=== PATIENT | female | born 1975 | race Caucasian/White ===

== ENCOUNTER 2017-07-29 08:00 | Outpatient (CLI) | payer OTHER | END 2017-07-29 08:01 | disposition home or self-care (01) | LOC: LAB.R 08:00 | PROVIDERS: ATTEND Family Medicine | DX: N39.0 Urinary tract infection, site not specified (principal) | CPT/HCPCS: 87086 ==

== ENCOUNTER 2018-08-12 09:05 | Outpatient (CLI) | payer OTHER ==
--- NOTE | 2018-08-13 12:14 | Mammography Report ---
Reason: SCREEN w NKIUNJ Procedure Date: 08/12/2018 Accession Number: [id number] / [id number] Procedure: NATE - Screening Mammo w/Nikunj CPT Code: FULL RESULT: EXAM: Screening Mammo w/Nikunj DATE: 08/12/2018 10:13 AM CLINICAL HISTORY: Routine screening TECHNIQUE: Bilateral CC and MLO views were obtained. COMPARISON: 01/22/2016 and 01/09/2016 FINDINGS: There are scattered fibroglandular densities. The previously demonstrated cysts in the anterior right breast have decreased in size and conspicuity. A small subareolar nodule in the left breast is unchanged compared to 2016 but has not been previously evaluated.. Suggest ultrasound. Otherwise no suspicious masses, clustered microcalcifications, or regions of architectural distortion are identified. IMPRESSION: Needs additional evaluation left breast by ultrasound. Negative right breast. RECOMMENDATION: Additional evaluation left breast by ultrasound. BIRADS CATEGORY 0: Needs additional evaluation STANDARD QUALIFYING STATEMENTS: 1. This examination was not reviewed with the aid of Computer-Aided Detection (CAD). 2. A negative or benign imaging report should not delay biopsy if clinically suspicious findings are present. Consider surgical consultation if warrented. More than 5% of cancers are not identified by imaging. 3. Dense breasts may obscure an underlying neoplasm. 4. This examination was reviewed with the aid of 3D breast imaging (tomosynthesis).
== END 2018-08-12 09:06 | disposition home or self-care (01) ==
LOC: DI 09:05
DX: Z12.31 Encounter for screening mammogram for malignant neoplasm of breast (principal); R92.8 Other abnormal and inconclusive findings on diagnostic imaging of breast
CPT/HCPCS: 77063; 77067

== ENCOUNTER 2018-08-12 09:55 | Outpatient (CLI) | payer OTHER ==
[2018-08-12 10:19] LABS: BASOPHILS % (AUTO) 0.5 %; EOSINOPHILS # (AUTO) 0.1 10^3/uL (0.0-0.7); EOSINOPHILS % (AUTO) 1.4 %; HGB - HEMOGLOBIN 12.9 g/dL (12.0-16.0); LYMPHOCYTES # (AUTO) 1.8 10^3/uL (1.5-3.5); LYMPHOCYTES % (AUTO) 28.8 %; MEAN CORPUSCULAR HEMOGLOBIN 32.7 pg (27.0-31.0); MEAN CORPUSCULAR HGB CONC 35.1 g/dL (32.0-36.0); MEAN CORPUSCULAR VOLUME 93.1 fL (81.0-99.0); MEAN PLATELET VOLUME 8.7 fL (7.9-10.8); MONOCYTES # (AUTO) 0.5 10^3/uL (0.0-1.0); MONOCYTES % (AUTO) 7.6 %; NEUTROPHILS # (AUTO) 3.9 10^3/uL (1.5-6.6); NEUTROPHILS % (AUTO) 61.7 %; PLT - PLATELET COUNT 220 10^3/uL (130-450); RED BLOOD COUNT 3.96 10^6/uL (4.20-5.40); RED CELL DISTRIBUTION WIDTH 12.5 % (12.0-15.0); WHITE BLOOD COUNT 6.3 x10^3/uL (4.8-10.8)
[2018-08-12 10:35] LABS: ALBUMIN 4.2 g/dL (3.2-5.5); ALBUMIN/GLOBULIN RATIO 1.6 (1.0-2.2); ALKALINE PHOSPHATASE 97 IU/L (42-121); ALT ALANINE AMINOTRANSFERASE 31 IU/L (10-60); AST ASPARTATE AMINOTRANSFERASE 29 IU/L (10-42); BILIRUBIN,TOTAL 0.4 mg/dL (0.2-1.0); BUN - BLOOD UREA NITROGEN 11 mg/dL (6-20); CALCIUM 8.6 mg/dL (8.5-10.3); CARBON DIOXIDE - CO2 25 mmol/L (21-32); CHLORIDE 106 mmol/L (101-111); CHOL/HDL RATIO 3.9 (<4.4); CHOLESTEROL 165 mg/dL; CREATININE 0.6 mg/dL (0.4-1.0); GFR - MDRD 109 (>89); GLUCOSE 98 mg/dL (70-100); HDL CHOLESTEROL 42 mg/dL; LDL CHOLESTEROL,CALCULATED 101 mg/dL; LDL/HDL RATIO 2.4 (<4.4); SODIUM 139 mmol/L (135-145); TOTAL PROTEIN 6.9 g/dL (6.7-8.2); VLDL CHOLESTEROL 22 mg/dL
[2018-08-12 10:46] LABS: HB2 TOTAL 13.8 g/dL; HEMOGLOBIN A1C 0.46 g/dL; HEMOGLOBIN A1C % 5.2 % (4.6-6.2)
== END 2018-08-12 09:56 | disposition home or self-care (01) ==
LOC: LAB 09:55
PROVIDERS: ATTEND Family Medicine
DX: E78.5 Hyperlipidemia, unspecified (principal); F41.8 Other specified anxiety disorders; I10 Essential (primary) hypertension
CPT/HCPCS: 36415; 80053; 80061; 83036; 83721; 84443; 85025

== ENCOUNTER 2018-08-25 18:57 | Outpatient (CLI) | payer OTHER ==
--- NOTE | 2018-08-25 23:41 | Ultrasound Report ---
Reason: HEAVY MENSTRUATION,PELVIC PAIN Procedure Date: 08/25/2018 Accession Number: [id number] / [id number] Procedure: US - Pelvic w/Transvaginal CPT Code: FULL RESULT: EXAM: PELVIC ULTRASOUND EXAM DATE: 08/25/2018 07:28 PM. CLINICAL HISTORY: Heavy menstruation, pelvic pain. COMPARISON: None. TECHNIQUE: Realtime transabdominal pelvic scan performed to identify the uterus and adnexa and as an overview of other pelvic structures, followed by transvaginal scan to provide greater detail of the uterus and adnexa, with static image documentation. FINDINGS: Uterus: 9.4 x 6.1 x 7.1 cm, volume 214.1 cc. Retroverted and retroflexed position. Normal overall size and echotexture. Masses: Undefined, poorly marginated 2 x 1.9 x 2.7 cm isoechoic lesion in the posterior uterine body may represent a small fibroid. Endometrium: 15 mm. No endometrial mass or polyp.Endometrium is heterogeneous. Cervix: Multiple nabothian cysts are noted. No mass. Right Ovary: 3.3 x 1.5 x 1.2 cm, volume 3.1 cc. Normal echotexture and blood flow. Left Ovary: 3.7 x 2.7 x 3.9 cm, volume 20.7 cc. Normal echotexture and blood flow. 2.4 x 2.1 x 2.7 Cm complex left thick-walled ovarian cyst with debris and mild peripheral flow. No mural nodules or thickened septations. Free Fluid: None. Other: None. IMPRESSION: 1. Mildly complex thick-walled debris-containing 2.4 cm left ovarian cyst. Differential includes hemorrhagic cyst or corpus luteum. Otherwise, both ovaries and adnexa are normal. 2. No endometrial mass or polyp. 3. Possible posterior uterine intramural 2.7 cm fibroid. RADIA
== END 2018-08-25 18:58 | disposition home or self-care (01) ==
LOC: DI 18:57
PROVIDERS: ATTEND Family Medicine
DX: N83.292 Other ovarian cyst, left side (principal)
CPT/HCPCS: 76830; 76856

== ENCOUNTER 2018-09-01 12:03 | Outpatient (CLI) | payer OTHER ==
--- NOTE | 2018-09-02 11:50 | Ultrasound Report ---
Reason: ABN MAMMO - LT SPEC VIEW US Procedure Date: 09/01/2018 Accession Number: [id number] / [id number] Procedure: US - Breast Unilateral Limited CPT Code: FULL RESULT: EXAM: Breast Unilateral Limited DATE: 09/01/2018 1:02 PM CLINICAL HISTORY: Diagnostic breast ultrasound to clarify mammographic finding on screening mammography. ? COMPARISON: Screening mammogram 08/12/2018. TECHNIQUE: Targeted ultrasound was performed of the left breast in the area of mammographic concern at 7 o'clock. ?Color Doppler was employed as appropriate. ? FINDINGS: A cluster of anechoic thin-walled cystic masses individually measuring less than 3 mm with thin intervening septations and no discrete solid component collectively measuring less than 7 mm identified; clustered microcysts. Given retrospective 2 years stability on mammogram as well as well-defined borders and absence of a soft tissue solid component on ultrasound these findings are considered benign. IMPRESSION: Benign findings. BI-RADS category: 2 Recommendation: Annual screening mammography. RADIA
== END 2018-09-01 12:04 | disposition home or self-care (01) ==
LOC: DI 12:03
PROVIDERS: ATTEND Family Medicine
DX: N63.20 Unspecified lump in the left breast, unspecified quadrant (principal); R92.8 Other abnormal and inconclusive findings on diagnostic imaging of breast
CPT/HCPCS: 76642

== ENCOUNTER 2018-12-22 16:23 | Outpatient (CLI) | payer OTHER ==
[2018-12-22] MEDS ORDERED: GADOBUTROL 10 MMOL/10 ML VIAL ONE (16:32)
[2018-12-22] MEDS: GADOBUTROL 10 MMOL/10 ML VIAL IVP ONE (18:12)
--- NOTE | 2018-12-24 01:09 | MRI Report ---
Reason: PELVIC PAIN, HEAVY MENSTRUATION Procedure Date: 12/22/2018 Accession Number: [id number] / [id number] Procedure: MRI - Pelvis W/WO CPT Code: FULL RESULT: EXAM: MR PELVIS WITH AND WITHOUT CONTRAST (MR FEMALE PELVIS) EXAM DATE: 12/22/2018 06:14 PM. CLINICAL HISTORY: Pelvic pain, heavy menstruation. COMPARISON: PELVIC W/TRANSVAGINAL 08/25/2018 7:07 PM. TECHNIQUE: Multiplanar breath-hold T1, T2 and DWI sequences obtained through the pelvis on an MR scanner. Images obtained before and after administration of 10 mL Gadavist intravenous contrast. FINDINGS: Uterus: Retroflexed. No measurable fibroids seen. Mild junctional zone thickening, measuring up to 13 mm posteriorly. No endometrial mass is seen. Ovaries: Both appear normal. No adnexal masses seen. Bowel: The visualized portions of the small bowel, colon, and rectum appear normal. Bladder: The urinary bladder appears normal. Other: Trace free fluid. IMPRESSION: 1. Mild uterine adenomyosis. 2. Otherwise negative pelvic MRI. RADIA
== END 2018-12-22 16:24 | disposition home or self-care (01) ==
LOC: DI 16:23
PROVIDERS: ATTEND Obstetrics & Gynecology
DX: N80.0 Endometriosis of uterus (principal)
CPT/HCPCS: 72197; A9585

== ENCOUNTER 2020-03-16 17:18 | Outpatient (CLI) | payer OTHER ==
[2020-03-16 17:42] LABS: BASOPHILS % (AUTO) 0.3 %; EOSINOPHILS # (AUTO) 0.1 10^3/uL (0.0-0.7); EOSINOPHILS % (AUTO) 1.2 %; LYMPHOCYTES # (AUTO) 1.9 10^3/uL (1.5-3.5); LYMPHOCYTES % (AUTO) 32.2 %; MEAN CORPUSCULAR HEMOGLOBIN 31.8 pg (27.0-31.0); MEAN CORPUSCULAR HGB CONC 32.9 g/dL (32.0-36.0); MEAN CORPUSCULAR VOLUME 96.6 fL (81.0-99.0); MEAN PLATELET VOLUME 10.4 fL (7.9-10.8); MONOCYTES # (AUTO) 0.5 10^3/uL (0.0-1.0); MONOCYTES % (AUTO) 8.5 %; NEUTROPHILS # (AUTO) 3.4 10^3/uL (1.5-6.6); NEUTROPHILS % (AUTO) 57.5 %; PLT - PLATELET COUNT 223 10^3/uL (130-450); RED BLOOD COUNT 4.09 10^6/uL (4.20-5.40); WHITE BLOOD COUNT 5.9 x10^3/uL (4.8-10.8)
[2020-03-16 17:55] LABS: ALBUMIN 4.2 g/dL (3.2-5.5); ALBUMIN/GLOBULIN RATIO 1.4 (1.0-2.2); BILIRUBIN,TOTAL 0.7 mg/dL (0.2-1.0); CREATININE 0.8 mg/dL (0.4-1.0); TOTAL PROTEIN 7.1 g/dL (6.7-8.2)
== END 2020-03-16 17:19 | disposition home or self-care (01) ==
LOC: LAB 17:18
PROVIDERS: ATTEND Physician Assistant
DX: I10 Essential (primary) hypertension (principal); F32.9 Major depressive disorder, single episode, unspecified; F41.9 Anxiety disorder, unspecified
CPT/HCPCS: 36415; 80053; 82306; 84443; 85025

== ENCOUNTER 2020-03-29 08:00 | Outpatient (CLI) | payer OTHER ==
[2020-03-29 18:33] LABS: CALCIUM 8.8 mg/dL (8.5-10.3); CREATININE 0.8 mg/dL (0.4-1.0)
== END 2020-03-29 23:59 | disposition home or self-care (01) ==
LOC: LAB.WCP 08:00
PROVIDERS: ATTEND Nurse Practitioner Family
DX: I10 Essential (primary) hypertension (principal)
CPT/HCPCS: 36415; 80048

== ENCOUNTER 2020-04-10 14:32 | Outpatient (CLI) | payer OTHER ==
[2020-04-10 15:08] LABS: CALCIUM 8.4 mg/dL (8.5-10.3); CREATININE 0.6 mg/dL (0.4-1.0)
== END 2020-04-10 14:33 | disposition home or self-care (01) ==
LOC: LAB 14:32
PROVIDERS: ATTEND Nurse Practitioner Family
DX: E87.6 Hypokalemia (principal)
CPT/HCPCS: 36415; 80048

== ENCOUNTER 2020-04-11 14:26 | Outpatient (CLI) | payer OTHER | END 2020-04-11 23:59 | disposition home or self-care (01) | LOC: LAB.WCP 14:26 | PROVIDERS: ATTEND Physician Assistant | DX: E87.6 Hypokalemia (principal) | CPT/HCPCS: 36415; 82088; 83935; 84244; 84300 ==

== ENCOUNTER 2020-04-24 09:21 | Outpatient (CLI) | payer OTHER ==
--- NOTE | 2020-04-24 10:34 | Ultrasound Report ---
PROCEDURE: Abdomen Limited INDICATIONS: LUQ ABD MASS TECHNIQUE: Real-time focused scanning was performed of the abdomen, with image documentation. COMPARISON: None. FINDINGS: In the area of palpable abnormality involving the left upper quadrant, and tenderness, no discrete sonographic mass cyst or fluid collection is identified. IMPRESSION: Negative ultrasound examination in the area of palpable abnormality as above. Recommend clinical stephanie gement. If clinically warranted, CT evaluation could be considered. Reviewed by: William Hill MD on 04/24/2020 10:33 AM PDT Approved by: William Hill MD on 04/24/2020 10:33 AM PDT Station ID: [id number]
== END 2020-04-24 09:22 | disposition home or self-care (01) ==
LOC: DI 09:21
PROVIDERS: ATTEND Physician Assistant
DX: R19.02 Left upper quadrant abdominal swelling, mass and lump (principal)
CPT/HCPCS: 76705

== ENCOUNTER 2020-06-06 12:06 | Outpatient (CLI) | payer OTHER ==
[2020-06-06 18:55] LABS: CALCIUM 8.4 mg/dL (8.5-10.3); CREATININE 0.7 mg/dL (0.4-1.0)
== END 2020-06-06 12:07 | disposition home or self-care (01) ==
LOC: LAB.WCP 12:06
PROVIDERS: ATTEND Nurse Practitioner Family
DX: E55.9 Vitamin D deficiency, unspecified (principal); R19.02 Left upper quadrant abdominal swelling, mass and lump; E87.6 Hypokalemia
CPT/HCPCS: 36415; 80048; 82306; 82565

== ENCOUNTER 2020-06-09 10:40 | Outpatient (CLI) | payer OTHER ==
[2020-06-09] MEDS ORDERED: IOVERSOL 320 50 ML VIAL ONE (10:54)
[2020-06-09] MEDS ORDERED: IOVERSOL 320 100 ML VIAL IVP ONE ×2 (10:54→18:57)
--- NOTE | 2020-06-09 13:50 | CT Report ---
PROCEDURE: Abdomen/Pelvis W INDICATIONS: Left upper quadrant abdominal mass CONTRAST: IV CONTRAST: Optiray 320 ml: 100 PO CONTRAST: Optiray 320 ml50 TECHNIQUE: After the administration of oral and intravenous contrast, 5 mm thick sections acquired from the diap hragms to the symphysis. 5 mm thick coronal and sagittal reformats were acquired. For radiation dos e reduction, the following was used: automated exposure control, adjustment of mA and/or kV accordin g to patient size. COMPARISON: Abdominal ultrasound 04/24/2020. FINDINGS: Image quality: Excellent. ABDOMEN: Lung bases: Lung bases are clear. Heart size is normal. Solid organs: Mild hepatic steatosis. No focal hepatic mass or intrahepatic biliary ductal dilatation . Gallbladder unremarkable. Normal size of the spleen with no splenic mass. There is a splenule immed iately inferiorly adjacent to the anterior spleen measuring approximately 2.1 cm. Both adrenal glands and kidneys are normal in appearance. Pancreas is unremarkable. Peritoneum and bowel: Bowel loops demonstrate normal wall thickness and caliber. No free fluid or a ir. Nodes and vessels: No retroperitoneal or mesenteric adenopathy by size criteria. Aorta and inferior vena cava are normal in size. Miscellaneous: No mass in the subcutaneous soft tissues of the left upper quadrant or elsewhere. PELVIS: Genitourinary: Bladder wall thickness is normal. Uterus and adnexa are within normal limits. Miscellaneous: No inguinal hernias or adenopathy. Bones: No suspicious bony lesions. No vertebral body compression fractures. IMPRESSION: Unremarkable CT of the abdomen and pelvis. No left upper quadrant mass or other finding to correlating with the provided history. Reviewed by: Joel Azevedo MD on 06/09/2020 1:49 PM PDT Approved by: Joel Azevedo MD on 06/09/2020 1:49 PM PDT Station ID: [id number]
[2020-06-09] MEDS ORDERED: IOVERSOL 320 50 ML VIAL PO ONE (18:57)
== END 2020-06-09 10:41 | disposition home or self-care (01) ==
LOC: DI 10:40
PROVIDERS: ATTEND Physician Assistant
DX: R19.02 Left upper quadrant abdominal swelling, mass and lump (principal)
CPT/HCPCS: 74177; Q9967

== ENCOUNTER 2020-08-03 07:00 | Outpatient (CLI) | payer OTHER | END 2020-08-03 23:59 | disposition home or self-care (01) | LOC: LAB.R 07:00 | PROVIDERS: ATTEND Physician Assistant Medical | DX: J06.9 Acute upper respiratory infection, unspecified (principal); Z20.828 Contact with and (suspected) exposure to other viral communicable diseases | CPT/HCPCS: 87070 ==

== ENCOUNTER 2020-11-28 11:09 | Outpatient (CLI) | payer OTHER ==
[2020-11-28 18:16] LABS: BASOPHILS % (AUTO) 0.1 %; EOSINOPHILS # (AUTO) 0.1 10^3/uL (0.0-0.7); EOSINOPHILS % (AUTO) 1.1 %; HGB - HEMOGLOBIN 14.3 g/dL (12.0-16.0); LYMPHOCYTES # (AUTO) 1.6 10^3/uL (1.5-3.5); LYMPHOCYTES % (AUTO) 22.2 %; MEAN CORPUSCULAR HEMOGLOBIN 31.2 pg (27.0-31.0); MEAN CORPUSCULAR HGB CONC 31.5 g/dL (32.0-36.0); MEAN CORPUSCULAR VOLUME 99.1 fL (81.0-99.0); MONOCYTES # (AUTO) 0.6 10^3/uL (0.0-1.0); MONOCYTES % (AUTO) 8.1 %; NEUTROPHILS # (AUTO) 4.8 10^3/uL (1.5-6.6); NEUTROPHILS % (AUTO) 68.1 %; PLT - PLATELET COUNT 241 10^3/uL (130-450); RED BLOOD COUNT 4.58 10^6/uL (4.20-5.40); RED CELL DISTRIBUTION WIDTH 12.1 % (12.0-15.0); WHITE BLOOD COUNT 7.1 x10^3/uL (4.8-10.8)
[2020-11-28 18:38] LABS: ALBUMIN 4.4 g/dL (3.2-5.5); ALBUMIN/GLOBULIN RATIO 1.5 (1.0-2.2); ALKALINE PHOSPHATASE 73 IU/L (42-121); ALT ALANINE AMINOTRANSFERASE 22 IU/L (10-60); AST ASPARTATE AMINOTRANSFERASE 21 IU/L (10-42); BILIRUBIN,TOTAL 0.6 mg/dL (0.2-1.0); BUN - BLOOD UREA NITROGEN 14 mg/dL (6-20); CALCIUM 9.2 mg/dL (8.5-10.3); CARBON DIOXIDE - CO2 27 mmol/L (21-32); CHLORIDE 104 mmol/L (101-111); CHOL/HDL RATIO 4.8 (<4.4); CHOLESTEROL 196 mg/dL; CREATININE 0.8 mg/dL (0.4-1.0); GLUCOSE 103 mg/dL (70-100); HDL CHOLESTEROL 41 mg/dL; LDL CHOLESTEROL,CALCULATED 122 mg/dL; TOTAL PROTEIN 7.4 g/dL (6.7-8.2); VLDL CHOLESTEROL 33 mg/dL
== END 2020-11-28 11:10 | disposition home or self-care (01) ==
LOC: LAB.N 11:09
PROVIDERS: ATTEND Internal Medicine
DX: I10 Essential (primary) hypertension (principal); E78.5 Hyperlipidemia, unspecified
CPT/HCPCS: 36415; 80053; 80061; 83721; 84443; 85025

== ENCOUNTER 2021-01-16 13:09 | Outpatient (CLI) | payer OTHER ==
--- NOTE | 2021-01-17 13:40 | Mammography Report ---
BILATERAL DIGITAL SCREENING MAMMOGRAM 3D/2D: 01/16/2021 CLINICAL: Routine screening. Comparison is made to exams dated: 08/12/2018 mammogram, 01/22/2016 mammogram, and 01/09/2016 mammogra m - [facility]. There are scattered fibroglandular elements in both breasts. No significant masses, calcifications, or other findings are seen in either breast. There has been no significant interval change. IMPRESSION: NEGATIVE There is no mammographic evidence of malignancy. A 1 year screening mammogram is recommended. This exam was interpreted at Station ID: [id number]. NOTE: For mammograms, a report in lay terms will be sent to the patient. Approximately 15% of breast malignancies will not be visualized mammographically. In the management of a palpable breast mass, a negative mammogram must not discourage biopsy of a clinically suspicious lesion. Electronically Signed By: Juan Acosta M.D. ddp/penrad:01/16/2021 14:53:52 ACR BI-RADS Category 1: Negative 3341F PARENCHYMAL PATTERN: (A) - The breast(s) demonstrate(s) scattered fibroglandular densities. BI-RADS CATEGORY: (1) - 1 RECOMMENDATION: (ANNUAL) - Recommend routine annual screening mammography. [id number] 1 year screening LATERALITY: (B)
== END 2021-01-16 13:10 | disposition home or self-care (01) ==
LOC: DI 13:09
PROVIDERS: ATTEND Internal Medicine
DX: Z12.31 Encounter for screening mammogram for malignant neoplasm of breast (principal)

== ENCOUNTER 2021-03-30 09:36 | Outpatient (CLI) | payer OTHER | END 2021-03-30 23:59 | disposition home or self-care (01) | LOC: LAB.N 09:36 | PROVIDERS: ATTEND Family Medicine | DX: Z23 Encounter for immunization (principal) | CPT/HCPCS: 36415; 86762; 86787 ==

== ENCOUNTER 2021-12-12 10:20 | Outpatient (CLI) | payer OTHER ==
[2021-12-12 10:41] LABS: BASOPHILS % (AUTO) 0.2 %; EOSINOPHILS # (AUTO) 0.1 10^3/uL (0.0-0.7); EOSINOPHILS % (AUTO) 1.2 %; HGB - HEMOGLOBIN 13.8 g/dL (12.0-16.0); LYMPHOCYTES # (AUTO) 1.6 10^3/uL (1.5-3.5); LYMPHOCYTES % (AUTO) 30.4 %; MEAN CORPUSCULAR HEMOGLOBIN 32.3 pg (27.0-31.0); MEAN CORPUSCULAR HGB CONC 34.5 g/dL (32.0-36.0); MEAN CORPUSCULAR VOLUME 93.7 fL (81.0-99.0); MEAN PLATELET VOLUME 10.9 fL (7.9-10.8); MONOCYTES # (AUTO) 0.5 10^3/uL (0.0-1.0); MONOCYTES % (AUTO) 10.2 %; NEUTROPHILS % (AUTO) 57.8 %; PLT - PLATELET COUNT 186 10^3/uL (130-450); RED BLOOD COUNT 4.27 10^6/uL (4.20-5.40); RED CELL DISTRIBUTION WIDTH 11.9 % (12.0-15.0); WHITE BLOOD COUNT 5.2 x10^3/uL (4.8-10.8)
[2021-12-12 11:05] LABS: ALBUMIN 4.5 g/dL (3.2-5.5); ALKALINE PHOSPHATASE 55 IU/L (42-121); ALT ALANINE AMINOTRANSFERASE 44 IU/L (10-60); AST ASPARTATE AMINOTRANSFERASE 31 IU/L (10-42); BILIRUBIN,TOTAL 0.8 mg/dL (0.2-1.0); BUN - BLOOD UREA NITROGEN 18 mg/dL (6-20); CALCIUM 8.7 mg/dL (8.5-10.3); CARBON DIOXIDE - CO2 24 mmol/L (21-32); CHLORIDE 100 mmol/L (101-111); CHOL/HDL RATIO 4.7 (<4.4); CHOLESTEROL 140 mg/dL; CREATININE 0.8 mg/dL (0.4-1.0); GFR - MDRD 77 (>89); GLUCOSE 108 mg/dL (70-100); HDL CHOLESTEROL 30 mg/dL; LDL CHOLESTEROL,CALCULATED 94 mg/dL; LDL/HDL RATIO 3.1 (<4.4); POTASSIUM 3.1 mmol/L (3.5-5.0); SODIUM 136 mmol/L (135-145); TOTAL PROTEIN 6.8 g/dL (6.7-8.2); TRIGLYCERIDES 80 mg/dL; VLDL CHOLESTEROL 16 mg/dL
[2021-12-12 12:54] LABS: THYROID STIMULATING HORMONE 1.84 uIU/mL (0.34-5.60)
== END 2021-12-12 10:21 | disposition home or self-care (01) ==
LOC: LAB 10:20
PROVIDERS: ATTEND Internal Medicine
DX: I10 Essential (primary) hypertension (principal); E78.5 Hyperlipidemia, unspecified; E55.9 Vitamin D deficiency, unspecified; F41.9 Anxiety disorder, unspecified; F32.A Depression, unspecified
CPT/HCPCS: 36415; 80053; 80061; 82306; 83721; 84443; 85025

== ENCOUNTER 2022-01-03 08:54 | Outpatient (CLI) | payer OTHER ==
--- NOTE | 2022-01-03 16:22 | MRI Report ---
PROCEDURE: Thoracic Spine W/O INDICATIONS: THORACIC DISC DISORDER TECHNIQUE: Noncontrast sagittal T1 spine echo and T2 fast spin echo, sagittal STIR, axial T1 and T2 fast spin ec ho through the thoracic spine. COMPARISON: None. FINDINGS: Image quality: Excellent. Alignment and Curvature: Normal thoracic vertebral body height and alignment. Bone Marrow: Marrow no suspicious focal marrow signal abnormality or bone marrow edema. Spinal Cord: Normal morphology and signal intensity of the thoracic cord. Regional Soft Tissues: No paravertebral masses. Miscellaneous: No spinal canal or neural foraminal stenosis at any level in the thoracic spine. No fi ndings of cord compression or focal nerve root impingement. No significant degenerative changes of th e endplates or facet. IMPRESSION: Unremarkable thoracic spine MRI without spinal canal stenosis, neural foraminal stenosis , or focal nerve root impingement, or cord signal abnormality. Reviewed by: Joel Azevedo MD on 01/03/2022 4:20 PM PST Approved by: Joel Azevedo MD on 01/03/2022 4:20 PM PST Station ID: [id number]
== END 2022-01-03 08:55 | disposition home or self-care (01) ==
LOC: DI 08:54
PROVIDERS: ATTEND Internal Medicine
DX: M51.14 Intervertebral disc disorders with radiculopathy, thoracic region (principal)

== ENCOUNTER 2022-03-14 12:38 | Outpatient (CLI) | payer OTHER ==
[2022-03-14 13:07] LABS: CALCIUM 8.9 mg/dL (8.5-10.3); CREATININE 0.9 mg/dL (0.4-1.0); POTASSIUM 3.3 mmol/L (3.5-5.0)
== END 2022-03-14 12:39 | disposition home or self-care (01) ==
LOC: LAB 12:38
PROVIDERS: ATTEND Internal Medicine
DX: I10 Essential (primary) hypertension (principal)
CPT/HCPCS: 36415; 80048

== ENCOUNTER 2022-06-27 12:14 | Outpatient (CLI) | payer OTHER ==
[2022-06-27 12:35] LABS: BASOPHILS % (AUTO) 0.3 %; EOSINOPHILS # (AUTO) 0.1 10^3/uL (0.0-0.7); EOSINOPHILS % (AUTO) 1.3 %; HGB - HEMOGLOBIN 14.2 g/dL (12.0-16.0); LYMPHOCYTES # (AUTO) 1.9 10^3/uL (1.5-3.5); LYMPHOCYTES % (AUTO) 24.5 %; MEAN CORPUSCULAR HEMOGLOBIN 31.8 pg (27.0-31.0); MEAN CORPUSCULAR HGB CONC 33.8 g/dL (32.0-36.0); MEAN PLATELET VOLUME 10.7 fL (7.9-10.8); MONOCYTES # (AUTO) 0.6 10^3/uL (0.0-1.0); MONOCYTES % (AUTO) 7.8 %; NEUTROPHILS # (AUTO) 5.1 10^3/uL (1.5-6.6); NEUTROPHILS % (AUTO) 65.7 %; PLT - PLATELET COUNT 219 10^3/uL (130-450); RED BLOOD COUNT 4.47 10^6/uL (4.20-5.40); RED CELL DISTRIBUTION WIDTH 12.1 % (12.0-15.0); WHITE BLOOD COUNT 7.7 x10^3/uL (4.8-10.8)
[2022-06-27 13:05] LABS: THYROID STIMULATING HORMONE 1.66 uIU/mL (0.34-5.60)
[2022-06-27 13:25] LABS: ALBUMIN 4.4 g/dL (3.2-5.5); ALBUMIN/GLOBULIN RATIO 1.5 (1.0-2.2); ALKALINE PHOSPHATASE 59 IU/L (42-121); ALT ALANINE AMINOTRANSFERASE 23 IU/L (10-60); AST ASPARTATE AMINOTRANSFERASE 20 IU/L (10-42); BILIRUBIN,TOTAL 0.8 mg/dL (0.2-1.0); BUN - BLOOD UREA NITROGEN 14 mg/dL (6-20); CALCIUM 9.1 mg/dL (8.5-10.3); CARBON DIOXIDE - CO2 25 mmol/L (21-32); CHLORIDE 104 mmol/L (101-111); CHOL/HDL RATIO 4.6 (<4.4); CHOLESTEROL 166 mg/dL; CREATININE 0.8 mg/dL (0.4-1.0); GFR - MDRD 77 (>89); GLUCOSE 113 mg/dL (70-100); HDL CHOLESTEROL 36 mg/dL; LDL CHOLESTEROL,CALCULATED 103 mg/dL; LDL/HDL RATIO 2.9 (<4.4); POTASSIUM 3.8 mmol/L (3.5-5.0); SODIUM 138 mmol/L (135-145); TOTAL PROTEIN 7.4 g/dL (6.7-8.2); TRIGLYCERIDES 136 mg/dL; VLDL CHOLESTEROL 27 mg/dL
[2022-06-27 21:00] LABS: ESTIMATED AVERAGE GLUCOSE 97 mg/dL (70-100)
== END 2022-06-27 12:15 | disposition home or self-care (01) ==
LOC: LAB 12:14
PROVIDERS: ATTEND Internal Medicine
DX: I10 Essential (primary) hypertension (principal); E78.5 Hyperlipidemia, unspecified; E55.9 Vitamin D deficiency, unspecified; R73.01 Impaired fasting glucose; F41.9 Anxiety disorder, unspecified; F32.A Depression, unspecified
CPT/HCPCS: 36415; 80053; 80061; 82306; 83036; 83721; 84443; 85025

== ENCOUNTER 2023-02-26 11:43 | Outpatient (CLI) | payer OTHER ==
[2023-02-26 12:23] LABS: BASOPHILS % (AUTO) 0.2 %; EOSINOPHILS # (AUTO) 0.1 10^3/uL (0.0-0.7); EOSINOPHILS % (AUTO) 1.4 %; HGB - HEMOGLOBIN 13.9 g/dL (12.0-16.0); LYMPHOCYTES # (AUTO) 1.6 10^3/uL (1.5-3.5); LYMPHOCYTES % (AUTO) 28.1 %; MEAN CORPUSCULAR HEMOGLOBIN 31.1 pg (27.0-31.0); MEAN CORPUSCULAR HGB CONC 33.1 g/dL (32.0-36.0); MEAN PLATELET VOLUME 10.5 fL (7.9-10.8); MONOCYTES # (AUTO) 0.5 10^3/uL (0.0-1.0); MONOCYTES % (AUTO) 8.4 %; NEUTROPHILS # (AUTO) 3.4 10^3/uL (1.5-6.6); NEUTROPHILS % (AUTO) 61.4 %; PLT - PLATELET COUNT 240 10^3/uL (130-450); RED BLOOD COUNT 4.47 10^6/uL (4.20-5.40); RED CELL DISTRIBUTION WIDTH 11.9 % (12.0-15.0); WHITE BLOOD COUNT 5.6 x10^3/uL (4.8-10.8)
[2023-02-26 12:29] LABS: ALBUMIN 4.3 g/dL (3.2-5.5); ALBUMIN/GLOBULIN RATIO 1.6 (1.0-2.2); ALKALINE PHOSPHATASE 66 IU/L (42-121); ALT ALANINE AMINOTRANSFERASE 25 IU/L (10-60); AST ASPARTATE AMINOTRANSFERASE 24 IU/L (10-42); BILIRUBIN,TOTAL 0.9 mg/dL (0.2-1.0); BUN - BLOOD UREA NITROGEN 12 mg/dL (6-20); CALCIUM 8.6 mg/dL (8.5-10.3); CARBON DIOXIDE - CO2 25 mmol/L (21-32); CHLORIDE 107 mmol/L (101-111); CHOL/HDL RATIO 4.3 (<4.4); CHOLESTEROL 184 mg/dL; CREATININE 0.6 mg/dL (0.4-1.0); GFR - MDRD 107 (>89); GLUCOSE 100 mg/dL (70-100); HDL CHOLESTEROL 43 mg/dL; LDL CHOLESTEROL,CALCULATED 117 mg/dL; LDL/HDL RATIO 2.7 (<4.4); POTASSIUM 3.3 mmol/L (3.5-5.0); SODIUM 140 mmol/L (135-145); TRIGLYCERIDES 120 mg/dL; VLDL CHOLESTEROL 24 mg/dL
[2023-02-26 12:34] LABS: ESTIMATED AVERAGE GLUCOSE 100 mg/dL (70-100); HEMOGLOBIN A1c% 5.1 % (4.27-6.07)
[2023-02-26 12:41] LABS: THYROID STIMULATING HORMONE 1.73 uIU/mL (0.34-5.60)
[2023-02-26 14:25] LABS: CREATININE,URINE 211.7 mg/dL; MICROALBUM/CREATININE RATIO,UR 9.4 ug/mg (<30.0)
== END 2023-02-26 11:44 | disposition home or self-care (01) ==
LOC: LAB 11:43
PROVIDERS: ATTEND Internal Medicine
DX: E78.5 Hyperlipidemia, unspecified (principal); R73.01 Impaired fasting glucose; E55.9 Vitamin D deficiency, unspecified; I10 Essential (primary) hypertension; F32.A Depression, unspecified; F41.9 Anxiety disorder, unspecified
CPT/HCPCS: 36415; 80053; 80061; 82043; 82306; 82570; 83036; 83721; 84443; 85025

== ENCOUNTER 2023-07-29 18:30 | Emergency (ER) | payer OTHER ==
[2023-07-29 18:51] VITALS: BP 184/88; O2SAT 100
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
--- OUTSIDE RECORDS SUMMARY | 2023-07-29 19:46 | EXTERNAL MEDICAL SUMMARY RPT | Continuity of Care Document ---
Author Name Unknown Address [address] [place] [address] Phone Organization [facility] Address [address] [place] [address] Phone Care Team Providers Care Moisture Tester Name Role Phone Unavailable Unavailable Unavailable Roney Galarza Unavailable Unavailable Allergies and Intolerances date description facility reaction severity 2023-06-12 09:26:30 [facility] (no reactio n) Severe 2023-06-12 09:26:30 [facility] (no reactio n) Severe 2023-06-12 09:26:30 [facility] (no reactio n) Severe 2023-06-12 09:26:30 [facility] (no reactio n) Severe Medications date description facility 2023-06-03 00:00 Norethindrone (Contraceptive) [facility] Problems date description facility 2023-05-13 00:00 Anxiety [facility] 2023-05-13 00:00 Restless legs syndrome [facility] 2023-05-13 00:00 Cardiac arrhythmia [facility] 2023-05-13 00:00 Cervical spine disease [facility] 2023-05-13 00:00 Chronic back pain [facility] 2023-05-13 00:00 Dysmenorrhea [facility] 2023-05-13 00:00 Absence of sensation [facility] 2023-06-12 09:18 Excessive and freque nt menstruation with regular cycle [facility] 2023-06-12 09:27 Excessive and freque nt menstruation with regular cycle [facility] 2023-06-12 11:10 Excessive and freque nt menstruation with regular cycle [facility] 2023-06-12 11:45 Excessive and freque nt menstruation with regular cycle [facility] 2023-06-12 11:55 Excessive and freque nt menstruation with regular cycle [facility] Procedures date description facility 2023-06-12 00[facility]abs [facility] date facility value unit notes Social History date description facility 2023-06-12 00:00 Never smoked tobacco (finding) [facility] 2023-06-27 00:00 Never smoked tobacco (finding) [facility] Vital Signs date measurement value units 2023-06-12 00:00 BMI 37.7 kg/m2 2023-06-12 00:00 BP_diastolic 90 mmHg 2023-06-12 00:00 BP_systolic 165 mmHg 2023-06-12 00:00 heart_rate 65 /min 2023-06-12 00:00 height_metric 172.72 cm 2023-06-12 00:00 height_standard 68 in 2023-06-12 00:00 o2_saturation 99 % 2023-06-12 00:00 respiration_rate 18 /min 2023-06-12 00:00 temperature_metric 36.39 C 2023-06-12 00:00 temperature_standard 97.5 F 2023-06-12 00:00 weight_metric 112.49 kg 2023-06-12 00:00 weight_standard 248 lb
== END 2023-07-29 19:46 | disposition home or self-care (01) ==
LOC: ED 18:30
DX: S09.90XA Unspecified injury of head, initial encounter (principal); S16.1XXA Strain of muscle, fascia and tendon at neck level, initial encounter; V89.2XXA Person injured in unspecified motor-vehicle accident, traffic, initial encounter; Y92.410 Unspecified street and highway as the place of occurrence of the external cause
CPT/HCPCS: 99283; 99284

== ENCOUNTER 2023-11-18 13:40 | Outpatient (CLI) | payer OTHER ==
[2023-11-18 14:28] LABS: CALCIUM 9.1 mg/dL (8.5-10.3); CREATININE 0.7 mg/dL (0.6-1.3); POTASSIUM 3.7 mmol/L (3.5-4.5)
== END 2023-11-18 13:41 | disposition home or self-care (01) ==
LOC: LAB 13:40
PROVIDERS: ATTEND Internal Medicine
DX: I10 Essential (primary) hypertension (principal)
CPT/HCPCS: 36415; 80048

== ENCOUNTER 2024-02-24 11:46 | Outpatient (CLI) | payer OTHER ==
[2024-02-24 12:08] LABS: BASOPHILS % (AUTO) 0.3 %; EOSINOPHILS # (AUTO) 0.1 10^3/uL (0.0-0.7); EOSINOPHILS % (AUTO) 0.9 %; HCT - HEMATOCRIT 43.4 % (37.0-47.0); HGB - HEMOGLOBIN 13.9 g/dL (12.0-16.0); LYMPHOCYTES # (AUTO) 1.5 10^3/uL (1.5-3.5); LYMPHOCYTES % (AUTO) 23.5 %; MEAN CORPUSCULAR HEMOGLOBIN 31.2 pg (27.0-31.0); MEAN CORPUSCULAR VOLUME 97.3 fL (81.0-99.0); MEAN PLATELET VOLUME 10.5 fL (7.9-10.8); MONOCYTES # (AUTO) 0.4 10^3/uL (0.0-1.0); NEUTROPHILS # (AUTO) 4.3 10^3/uL (1.5-6.6); NEUTROPHILS % (AUTO) 67.8 %; PLT - PLATELET COUNT 238 10^3/uL (130-450); RED BLOOD COUNT 4.46 10^6/uL (4.20-5.40); RED CELL DISTRIBUTION WIDTH 11.9 % (12.0-15.0); WHITE BLOOD COUNT 6.3 x10^3/uL (4.8-10.8)
[2024-02-24 12:21] LABS: CREATININE,URINE 268.8 mg/dL; MICROALBUM/CREATININE RATIO,UR 8.2 ug/mg (<30.0); MICROALBUMIN,URINE 2.2 mg/dL
[2024-02-24 12:23] LABS: ALBUMIN 4.5 g/dL (3.2-5.5); ALBUMIN/GLOBULIN RATIO 1.6 (1.0-2.2); ALKALINE PHOSPHATASE 86 IU/L (42-121); ALT ALANINE AMINOTRANSFERASE 18 IU/L (10-60); AST ASPARTATE AMINOTRANSFERASE 17 IU/L (10-42); BILIRUBIN,TOTAL 0.7 mg/dL (0.2-1.0); BUN - BLOOD UREA NITROGEN 13 mg/dL (6-20); CALCIUM 9.6 mg/dL (8.5-10.3); CARBON DIOXIDE - CO2 31 mmol/L (21-32); CHLORIDE 103 mmol/L (101-111); CHOLESTEROL 210 mg/dL; CREATININE 0.8 mg/dL (0.6-1.3); ESTIMATED AVERAGE GLUCOSE 97 mg/dL (70-100); GFR - MDRD 77 (>89); GLUCOSE 106 mg/dL (74-104); HDL CHOLESTEROL 42 mg/dL; LDL CHOLESTEROL,CALCULATED 143 mg/dL; LDL/HDL RATIO 3.4 (<4.4); POTASSIUM 3.4 mmol/L (3.5-4.5); SODIUM 139 mmol/L (135-145); TOTAL PROTEIN 7.3 g/dL (6.4-8.9); TRIGLYCERIDES 123 mg/dL (48-352); VLDL CHOLESTEROL 25 mg/dL
[2024-02-24 12:36] LABS: THYROID STIMULATING HORMONE 1.42 uIU/mL (0.34-5.60)
== END 2024-02-24 11:47 | disposition home or self-care (01) ==
LOC: LAB 11:46
PROVIDERS: ATTEND Internal Medicine
DX: E78.5 Hyperlipidemia, unspecified (principal); R73.01 Impaired fasting glucose; E55.9 Vitamin D deficiency, unspecified; F41.9 Anxiety disorder, unspecified; F32.A Depression, unspecified; I10 Essential (primary) hypertension
CPT/HCPCS: 36415; 80053; 80061; 82043; 82306; 82570; 83036; 83721; 84443; 85025

== ENCOUNTER 2024-03-12 11:41 | Outpatient (CLI) | payer OTHER ==
--- NOTE | 2024-03-12 15:50 | XRAY Report ---
PROCEDURE: Knee 3V LT INDICATIONS: LEFT KNEE JOINT PAIN TECHNIQUE: 3 views of the knee(s) were acquired. COMPARISON: None. FINDINGS: Bones: No fractures or dislocations. No suspicious bony lesions. Mild to moderate tricompartmenta l arthritic change most severe medially. Minimal periarticular osteophytes are present. No periarticu lar erosions. Soft tissues: Mild knee joint effusion. No suspicious soft tissue calcifications or masses. 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 Reviewed by: Amy Turner MD on 03/12/2024 3:49 PM PDT Approved by: Amy Turner MD on 03/12/2024 3:49 PM PDT Station ID: [id number]
== END 2024-03-12 11:42 | disposition home or self-care (01) ==
LOC: DI 11:41
PROVIDERS: ATTEND Emergency Medicine
DX: M17.12 Unilateral primary osteoarthritis, left knee (principal)

== ENCOUNTER 2024-03-29 07:25 | Outpatient (CLI) | payer OTHER ==
--- NOTE | 2024-03-29 12:25 | MRI Report ---
PROCEDURE: Knee LT WO INDICATIONS: L KNEE PAIN TECHNIQUE: Noncontrast sagittal PD fast spin echo and T2 fast spin echo with fat saturation, sagittal 3-D gradie nt sequence with fat saturation; coronal T1 spin echo and PD fast spin echo with fat saturation, and axial PD fast spin echo with fat saturation through the knee. COMPARISON: None. FINDINGS: Image quality: Excellent. Menisci: There is a small radial tear of the free edge of the posterior horn the medial meniscus. In addition, there is an oblique tear of the peripheral aspect of the posterior horn of the medial menis cus. The lateral meniscus demonstrates normal morphology and internal signal. The meniscal root ligaments appear intact. Cruciate ligaments: There is edema in the the anterior medial bundle of the anterior cruciate ligamen t, suspicious for partial tear. The posterior cruciate ligament is intact. Medial structures: The medial collateral ligament appears intact. There is mild strain at the semime mbranosus tendon insertions. There is emphysema in the posterior medial joint capsule. No meniscocaps ular separation. Visualized portions of the pes anserinus tendons appear normal. No abnormal bursal fluid. Lateral structures: The lateral collateral ligament, long and short heads of the biceps femoris tend on appear intact. The popliteus tendon appears normal. Iliotibial band appears normal. Anterior structures: The quadriceps and patellar tendons appear intact. There is mild quadriceps te ndinitis and patellar tendinitis. Patellar alignment is normal. No femoral trochlear dysplasia or ve ntral trochlear prominence. No edema in the infrapatellar fat pad. Bones and cartilage: No bone marrow contusions or fractures. There is moderate cartilage thinning an d fibrillation in the medial femorotibial compartment. Joint space: There is moderate knee joint effusion. No Rodriguez's cyst. Normal appearing synovial pli are incidentally noted. IMPRESSION: 1. Posterior horn medial meniscal tear. 2. Question partial tear of the anterior medial bundle of ACL. 3. Moderate quadriceps tendinitis and patellar tendinitis. 4. Mild cartilage thinning and fibrillation in the medial femorotibial compartment. 5. Moderate knee joint effusion. Reviewed by: Filipe Covington MD on 03/29/2024 12:24 PM PDT Approved by: Filipe Covington MD on 03/29/2024 12:24 PM PDT Station ID: [id number]
== END 2024-03-29 07:26 | disposition home or self-care (01) ==
LOC: DI 07:25
PROVIDERS: ATTEND Emergency Medicine
DX: S83.242A Other tear of medial meniscus, current injury, left knee, initial encounter (principal); M76.52 Patellar tendinitis, left knee; M76.892 Other specified enthesopathies of left lower limb, excluding foot; M25.462 Effusion, left knee; M23.92 Unspecified internal derangement of left knee

== ENCOUNTER 2024-04-19 14:42 | Outpatient (CLI) | payer OTHER ==
--- NOTE | 2024-04-20 08:41 | Ultrasound Report ---
LIMITED ULTRASOUND OF RIGHT BREAST: 04/19/2024 CLINICAL: Palpable right lateral outer quadrant lump. Comparison is made to exams dated: 12/25/2022 mammogram - [facility] and 01/16/2021 mammogr am - [facility]. Color flow ultrasound of the right breast lower outer quadrant was performed. Rodríguez scale images of t he real-time examination were reviewed. There is a benign 2.1 cm x 1.6 cm x 1.1 cm oval mass with a circumscribed margin in the right breast at 8 o'clock anterior depth 15 cm from the nipple. This oval mass is isoechoic. IMPRESSION: BENIGN There is no sonographic evidence of malignancy. The 2.1 cm x 1.6 cm x 1.1 cm oval mass in the right breast resembles a lipoma and is benign. Fatty de nsity was seen on mammography at site of marker. This corresponds to palpable abnormality. Clinical followup is recommended. If this is clinical concerning (for example, getting larger over ti me), consider needle biopsy or surgical excision. Return to annual mammogram screening schedule is recommended. This exam was interpreted at Station ID: [id number]. Electronically Signed By: Hector Starr M.D. lc/:04/19/2024 16:01:10 letter sent: No_Letter Ultrasound BI-RADS: 2 Benign BI-RADS CATEGORY: (2) - 2 Mammogram [id number] return to screening LATERALITY: (B)
--- NOTE | 2024-04-20 08:41 | Ultrasound Report ---
LIMITED ULTRASOUND OF LEFT BREAST: 04/19/2024 CLINICAL: Nipple discharge, right breast, not bloody. Comparison is made to exams dated: 12/25/2022 mammogram - [facility] and 01/16/2021 mammogr am - [facility]. Color flow ultrasound of the left breast retroareolar was performed. Rodríguez scale images of the real- time examination were reviewed. No significant abnormalities were seen sonographically in the left breast. IMPRESSION: NEGATIVE There is no sonographic evidence of malignancy. There is no abnormality seen in the left breast to correspond with the non-bloody discharge from the nipple, however, clinical correlation and clinical followup are recommended. Repeat imaging suggeste d if this discharge becomes bloody, or if there is a new/enlarging palpable abnormality. Return to annual mammogram screening schedule is recommended. This exam was interpreted at Station ID: [id number]. Electronically Signed By: Hector Starr M.D. lc/:04/19/2024 16:02:08 letter sent: No_Letter Ultrasound BI-RADS: 1 Negative BI-RADS CATEGORY: (1) - 1 Mammogram [id number] return to screening LATERALITY: (B)
--- NOTE | 2024-04-20 08:41 | Mammography Report ---
BILATERAL DIGITAL DIAGNOSTIC MAMMOGRAM 3D/2D: 04/19/2024 CLINICAL: Palp lump in right IMF. Left nipple discharge, not bloody. Comparison is made to exams dated: 01/16/2021 mammogram, 08/12/2018 mammogram, 01/22/2016 mammogram, mammogram - [facility], and 12/25/2022 mammogram - [facility]. There are scattered areas of fibroglandular density in both breasts (category b / 25%-50% glandular t issue). No significant masses, calcifications, or other findings are seen in either breast. IMPRESSION: INCOMPLETE: NEEDS ADDITIONAL IMAGING EVALUATION There is no abnormality seen in the right breast to correspond with the area of clinical concern (pal pable finding in the lower breast, marker seen on MLO view), however, ultrasound is recommended. The re is no abnormality seen in the left breast to correspond with the non-bloody discharge from the nip ple, however, ultrasound is recommended. Based on the Tyrer Cuzick model (a risk assessment model) the patient's lifetime risk is 8.9% and her 10 year risk is 2.0%. According to the ACR, ACS, and NCCN guidelines, an annual breast MRI exam jong g with mammogram is recommended if the patient's lifetime risk is 20% or greater. This exam was interpreted at Station ID: [id number]. NOTE: For mammograms, a report in lay terms will be sent to the patient. Approximately 15% of breast malignancies will not be visualized mammographically. In the management of a palpable breast mass, a negative mammogram must not discourage biopsy of a clinically suspicious lesion. Electronically Signed By: Hcetor Starr M.D. lc/:04/19/2024 15:58:48 ACR BI-RADS Category 0: Incomplete 3340F PARENCHYMAL PATTERN: (A) - The breast(s) demonstrate(s) scattered fibroglandular densities. BI-RADS CATEGORY: (0) - 0 Ultrasound [id number] Immediate follow-up LATERALITY: (B)
== END 2024-04-19 14:43 | disposition home or self-care (01) ==
LOC: DI 14:42
PROVIDERS: ATTEND Internal Medicine
DX: N64.52 Nipple discharge (principal); N63.13 Unspecified lump in the right breast, lower outer quadrant; R92.323 Mammographic fibroglandular density, bilateral breasts